=== PATIENT | male | born 1945 | race Caucasian/White ===

== ENCOUNTER 2016-11-21 21:19 | Observation (INO) ==
[2016-11-21] MEDS ORDERED: 0.9 % Sodium Chloride 1,000 ML IVC ONE (21:42)
--- NOTE | 2016-11-21 21:45 | Emergency Department Note ---
Disposition Clinical Impression: UTI (urinary tract infection) Disposition: Admitted As Inpatient Condition: Good Referrals: NO,PCP [Primary Care Provider] - Forms: ED Satisfaction Letter Time of Disposition: 23:53 SOB HPI - General Chief Complaint: ED Shortness of Breath/Dyspnea Stated Complaint: SOB Time Seen by Provider: 11/21/16 21:40 Source: patient, family Mode of arrival: ambulatory Limitations: no limitations Nursing Notes Reviewed: Yes Vital Signs Reviewed: Yes - History of Present Illness 71-year-old white male who states she has felt bad for a week. He has felt feverish and chilled. He has not documented an elevated temperature. He has felt short of breath with exertion. He has been lightheaded and dizzy when he is up walking and exerting himself. He states he has no energy and he feels generally weak. He denies any significant cough. No vomiting or diarrhea. No frequency or urgency. Pt Subjective Complaint: shortness of breath Onset (ago): week(s) Context: recent illness (1) Severity: moderate Consistency/Duration: constant Improves with: rest Worsens with: exertion Known history of: other (None) Associated symptoms: Reports: fever (Subjective) Treatment prior to arrival: none Cough present: No - Related Data Home oxygen amount: none Home Medications Medication Instructions Recorded Confirmed No Known Home Drugs 11/21/16 11/21/16 Allergies Allergy/AdvReac Type Severity Reaction Status Date / Time No Known Allergies Allergy Verified 11/21/16 21:21 All systems ED: reviewed and negative except as stated. Constitutional: Reports: fever, chills Eyes: Denies: eye discharge ENT ED: Denies: ear pain, throat pain Cardiovascular: Denies: chest pain Respiratory: Reports: dyspnea. Denies: cough, wheezes, hemoptysis, sputum production Gastrointestinal: Denies: abdominal pain, nausea, vomiting Genitourinary: Denies: urgency, dysuria, frequency Musculoskeletal: Denies: back pain, neck pain Integumentary: Denies: rash Past Medical History - Past Medical History Medical history: Reports: other Psychiatric history: Reports: no psych history - Social History Smoking Status: Never smoker Smokeless Tobacco Status: No Alcohol use: Reports: none Drug use: Reports: none Physical Exam - General Limitations: no limitations General appearance: alert, in no apparent distress - Head Head exam: atraumatic, normocephalic - Eye Eye exam: Present: PERRL, EOMI. Absent: scleral icterus, conjunctival injection - ENT ENT exam: normal oropharynx, mucous membranes moist, TM's normal bilaterally - Neck Neck exam: Present: normal inspection, full ROM, trachea midline. Absent: tenderness, lymphadenopathy - Respiratory Respiratory exam: Present: other (Decreased breath sounds in the bases bilaterally). Absent: respiratory distress, wheezes, accessory muscle use, prolonged expiratory phase - Cardiovascular Cardiovascular exam: Present: regular rate, normal rhythm, normal heart sounds - Abdominal Exam Abdominal exam: Present: soft, Non-Tender, normal bowel sounds. Absent: organomegaly, mass - Extremities Exam Extremities exam: Present: normal inspection, full ROM, normal capillary refill. Absent: pedal edema, calf tenderness - Back Exam Back exam: Absent: CVA tenderness (R), CVA tenderness (L) - Neurological Exam Neurological exam: Present: alert, oriented X3, normal gait. Absent: motor sensory deficit - Psychiatric Psychiatric exam: Present: normal affect, normal mood - Skin Skin exam: Present: warm, dry, intact, normal color Course Vital Signs Temperature 101.2 F H 11/21/16 21:22 Pulse Rate 81 11/21/16 21:22 Respiratory Rate 18 11/21/16 21:22 Blood Pressure 156/87 11/21/16 21:22 O2 Sat by Pulse Oximetry 96 11/21/16 21:22 Temperature 97.9 F 11/21/16 23:40 Pulse Rate 72 11/21/16 23:40 Respiratory Rate 24 11/21/16 23:40 Blood Pressure 128/75 11/21/16 23:40 O2 Sat by Pulse Oximetry 95 11/21/16 23:40 Oxygen Delivery Oxygen Delivery Room Air Shortness of Breath/Dyspnea - MDM Narrative Medical decision making narrative: Differential includes but is not limited to pneumonia, CHF, sepsis, UTI, influenza, bronchitis Is no evidence of pneumonia. No evidence of pulmonary embolus. He has a UTI with a significant left shift with bandemia. He has a temperature of 101. He was cultured. He was given IV Rocephin. I spoke with Dr. Asher. He will be placed in an observation bed for further evaluation. - Lab Data Lab results reviewed: Yes I reviewed the patient's lab results. Result diagrams: 11/21/16 21:49 11/21/16 21:55 Lab Results 11/21/16 11/21/16 11/21/16 Range/Units 21:49 21:49 21:49 WBC 5.3 (4.3-11.1) K/mcL RBC 4.98 (4.19-5.50) M/mcL Hgb 15.1 (12.9-16.9) g/dL Hct 43.7 (37.5-50.1) % MCV 87.8 (83.0-100.0) fL MCH 30.3 (28.0-33.3) pg MCHC 34.6 (31.6-35.5) g/dL RDW 12.6 (11.5-14.5) % Plt Count 122 L (140-400) K/mcL MPV 10.4 (9.4-12.4) fL Seg Neutrophils % 32.0 % Band Neutrophils % 8.0 H (0-4) % Lymphocytes % 54.0 % Monocytes % 6.0 % Neutrophils # 2.1 (1.6-8.9) K/mcL Lymphocytes # 2.9 (0.6-4.6) K/mcL Monocytes # 0.3 (0.0-1.3) K/mcL Smudge Cells Present A (Not Present) Toxic Granulation Present A (Not Present) Platelet Estimate Slight Decrease L (Normal) Anisocytosis 1+ A (Not Present) VBG Lactic Acid (0.5-2.2) mmol/L Sodium (136-145) mEq/L Potassium (3.5-4.5) mEq/L Chloride (98-109) mEq/L Carbon Dioxide (19-29) mEq/L BUN (8-26) mg/dL Creatinine (0.72-1.25) mg/dL Est GFR ( Amer) (> 60) Est GFR (Non-Af Amer) (> 60) BUN/Creatinine Ratio (6-26) Glucose (70-99) mg/dL Calculated Osmolality (280-300) Calcium (8.6-10.8) mg/dL Total Bilirubin (0.2-1.2) mg/dL AST (5-34) Units/L ALT (0-55) Units/L Alkaline Phosphatase (38-126) Units/L Troponin I 0.01 (0-0.03) ng/mL B-Natriuretic Peptide 30 (0-100) pg/mL Serum Total Protein (6.0-8.3) g/dL Albumin (3.5-5.0) g/dL Globulin (2.4-3.5) g/dL Albumin/Globulin Ratio (1.1-2.2) Urine Color (Yellow) Urine Clarity (Clear) Urine pH (5.0-8.0) pH Units Ur Specific [place] (1.010-1.025) Urine Protein (Neg-Trace) mg/dL Urine Glucose (UA) (Normal) mg/dL Urine Ketones (Negative) mg/dL Urine Blood (Negative) Urine Nitrite (Negative) Urine Bilirubin (Negative) Urine Urobilinogen (Normal) mg/dL Ur Leukocyte Esterase (Negative) Urine Microscopic RBC (0-3) per hpf Urine Microscopic WBC (0-3) per hpf Ur Squamous Epith Cells (None-Few) per lpf Urine Bacteria (None-Few) per hpf Urine Mucus (Few) Ur Culture Indicated? (NO) 11/21/16 11/21/16 11/21/16 Range/Units 21:49 21:55 22:30 WBC (4.3-11.1) K/mcL RBC (4.19-5.50) M/mcL Hgb (12.9-16.9) g/dL Hct (37.5-50.1) % MCV (83.0-100.0) fL MCH (28.0-33.3) pg MCHC (31.6-35.5) g/dL RDW (11.5-14.5) % Plt Count (140-400) K/mcL MPV (9.4-12.4) fL Seg Neutrophils % % Band Neutrophils % (0-4) % Lymphocytes % % Monocytes % % Neutrophils # (1.6-8.9) K/mcL Lymphocytes # (0.6-4.6) K/mcL Monocytes # (0.0-1.3) K/mcL Smudge Cells (Not Present) Toxic Granulation (Not Present) Platelet Estimate (Normal) Anisocytosis (Not Present) VBG Lactic Acid 1.4 (0.5-2.2) mmol/L Sodium 134 L (136-145) mEq/L Potassium 4.0 (3.5-4.5) mEq/L Chloride 102 (98-109) mEq/L Carbon Dioxide 21 (19-29) mEq/L BUN 13 (8-26) mg/dL Creatinine 1.21 (0.72-1.25) mg/dL Est GFR ( Amer) > 60 (> 60) Est GFR (Non-Af Amer) 59 L (> 60) BUN/Creatinine Ratio 11 (6-26) Glucose 121 H (70-99) mg/dL Calculated Osmolality 279 L (280-300) Calcium 8.3 L (8.6-10.8) mg/dL Total Bilirubin 0.6 (0.2-1.2) mg/dL AST 42 H (5-34) Units/L ALT 47 (0-55) Units/L Alkaline Phosphatase 77 (38-126) Units/L Troponin I (0-0.03) ng/mL B-Natriuretic Peptide (0-100) pg/mL Serum Total Protein 6.8 (6.0-8.3) g/dL Albumin 3.1 L (3.5-5.0) g/dL Globulin 3.7 H (2.4-3.5) g/dL Albumin/Globulin Ratio 0.8 L (1.1-2.2) Urine Color Yellow (Yellow) Urine Clarity Cloudy A (Clear) Urine pH 6.5 (5.0-8.0) pH Units Ur Specific [place] 1.015 (1.010-1.025) Urine Protein 100 H (Neg-Trace) mg/dL Urine Glucose (UA) Normal (Normal) mg/dL Urine Ketones Negative (Negative) mg/dL Urine Blood Trace-lysed H (Negative) Urine Nitrite Positive A (Negative) Urine Bilirubin Negative (Negative) Urine Urobilinogen Normal (Normal) mg/dL Ur Leukocyte Esterase Moderate H (Negative) Urine Microscopic RBC 0-3 (0-3) per hpf Urine Microscopic WBC TNTC H (0-3) per hpf Ur Squamous Epith Cells Few (None-Few) per lpf Urine Bacteria Many H (None-Few) per hpf Urine Mucus Moderate H (Few) Ur Culture Indicated? YES A (NO) - Radiology Data Radiology results reviewed: Yes I reviewed the patient's radiology results. ITS Impressions Chest X-Ray 11/21/16 21:42 IMPRESSION: No acute process. D/ / Marco Choudhary MD / Marco Choudhary MD Interpreting Provider: Marco Choudhary MD Chest CTA 11/21/16 22:29 IMPRESSION: No evidence of pulmonary embolism or acute pulmonary abnormality. D/ / Zach Mcdowell MD / Zach Mcdowell MD Interpreting Provider: Zach Mcdowell MD - EKG Data EKG attestation: Yes I reviewed and interpreted this EKG. EKG results narrative: Normal sinus rhythm, rate of 84, no acute changes. Rhythm hip shows sinus rhythm with a rate of 84, UT interval 150 ms, QRS 95 ms with no other ectopy as interpreted by me.
[2016-11-21 22:04] LABS: Hematocrit 43.7 % (37.5-50.1); Hemoglobin 15.1 g/dL (12.9-16.9); Mean Corpuscular HGB Conc 34.6 g/dL (31.6-35.5); Mean Corpuscular Hemoglobin 30.3 pg (28.0-33.3); Mean Corpuscular Volume 87.8 fL (83.0-100.0); Mean Platelet Volume 10.4 fL (9.4-12.4); Platelet Count 122 K/mcL (140-400); Red Blood Count 4.98 M/mcL (4.19-5.50); Red Cell Distribution Width 12.6 % (11.5-14.5)
[2016-11-21 22:22] LABS: Alanine Aminotransferase 47 Units/L (0-55); Albumin 3.1 g/dL (3.5-5.0); Albumin/Globulin Ratio 0.8 (1.1-2.2); Alkaline Phosphatase 77 Units/L (38-126); Aspartate Amino Transferase 42 Units/L (5-34); BUN/Creatinine Ratio 11 (6-26); Bilirubin,Total 0.6 mg/dL (0.2-1.2); Blood Urea Nitrogen 13 mg/dL (8-26); Calcium 8.3 mg/dL (8.6-10.8); Carbon Dioxide 21 mEq/L (19-29); Chloride 102 mEq/L (98-109); Globulin 3.7 g/dL (2.4-3.5); Glucose 121 mg/dL (70-99); Osmolality,Calculated 279 (280-300); Sodium 134 mEq/L (136-145); Total Protein 6.8 g/dL (6.0-8.3); eGFR For African Americans > 60 (> 60); eGFR For Non-African Americans 59 (> 60)
[2016-11-21 22:41] LABS: Bilirubin,Urine Negative (Negative); Blood,Urine Trace-lysed (Negative); Clarity,Urine Cloudy (Clear); Color,Urine Yellow (Yellow); Glucose,Urine (UA) Normal (Normal); Ketones,Urine Negative (Negative); Leukocyte Esterase,Urine Moderate (Negative); Nitrite,Urine Positive (Negative); PH,Urine 6.5 pH Units (5.0-8.0); Protein,Urine 100 mg/dL (Neg-Trace); Specific Gravity,Urine 1.015 (1.010-1.025); Urobilinogen,Urine Normal (Normal)
[2016-11-21 22:49] LABS: Lymphocytes # 2.9 K/mcL (0.6-4.6); Monocytes # 0.3 K/mcL (0.0-1.3); Neutrophils # 2.1 K/mcL (1.6-8.9); Platelet Estimate Slight Decrease (Normal); Smudge Cells Present (Not Present); Toxic Granulation Present (Not Present)
[2016-11-21 22:50] LABS: Anisocytosis 1+ (Not Present)
[2016-11-21 22:58] LABS: Bacteria,Urine Many per hpf (None-Few); Squamous Epithelial Cell,Urine Few per lpf (None-Few); WBC,Urine TNTC per hpf (0-3)
[2016-11-21 23:01] LABS: Mucus,Urine Moderate (Few); RBC,Urine 0-3 per hpf (0-3)
[2016-11-22] MEDS ORDERED: 0.9 % Sodium Chloride 1,000 ML IVC SCH (01:13)
[2016-11-22] MEDS ORDERED: Acetaminophen 325 MG TABLET PO PRN (01:13)
[2016-11-22] MEDS ORDERED: Naloxone 0.4 MG/ML INJ IVP PRN (01:13)
[2016-11-22] MEDS ORDERED: *HR* Enoxaparin 40 MG/0.4 ML SYRINGE SQ SCH (06:00)
[2016-11-22 07:47] VITALS: BP 124/73
--- NOTE | 2016-11-22 09:51 | Internal Med History&Physical ---
Date of Encounter: 11/22/16 Time of Encounter: 09:20 Assessment and Plan (1) UTI (urinary tract infection) Current visit: Yes Status: Acute He has been started empirically on Rocephin. Qualifiers: Urinary tract infection type: site unspecified Hematuria presence: without hematuria Qualified Code(s): N39.0 - Urinary tract infection, site not specified (2) Azotemia Current visit: Yes Status: Acute Duration unknown. He denies any prescription or OTC medications. I told him an infection can occasionally cause impairment in renal function. He will follow with a PCP who can further monitor this. (3) Thrombocytopenia Current visit: Yes Status: Acute Duration unknown. Follow-up labs can be done by a PCP. Internal Medicine - H&P: HPI Chief complaint: Fever and dyspnea Admitted From: Home Plans for Post Hospital Care: Home History of present illness: Mr. Guerrero is a 71 year old male who came to the hospital stating he had one- week history of dyspnea on exertion and weakness. He denies cough nausea vomiting diarrhea or pain. He was evaluated in emergency room and found to have evidence of UTI. He was admitted to [facility] floor for ongoing care needs. He states he feels improved at the present time. His respiratory history is significant for being a lifelong nonsmoker and having no known chronic lung disease. He denies previous similar episodes of illness. There are no family members similarly affected. His history is pertinent for BPH status post TUR approximately 2014. He denies other kidney bladder or prostate disorders. Past Med Surg Social Fam HX - Past Medical History Medical history: other Psychiatric history: no psych history - Social History Smoking Status: Never smoker Smokeless Tobacco Status: No Alcohol use: none Drug use: none Internal Medicine - H&P: Meds No Known Home Drugs 11/21/16 [History] Allergies No Known Allergies Allergy (Verified 11/21/16 21:21) All Systems PM: A 10-system review of systems was performed and is negative for pertinent findings except as documented above in the HPI. Review of systems: Gen.: He states his weight has been stable the past few months Cardiovascular: Denies hypertension AK heart failure angina DVT or pulmonary embolus Respiratory: Per history of present illness GI: Denies disorders of his liver gallbladder or exocrine pancreas : As per history of present illness Neurologic: He denies large distribution strokes or seizures. Endocrine: He denies diabetes thyroid disease or hyperlipidemia Hematology/oncology: Denies blood disorders cancers or anemia Psychiatric: He denies anxiety depression or other mental health issues Musculoskeletal: He has DJD but denies other bone joint or muscle disorders. He had a fall several days ago resulting in pain in his left shoulder. He states 2-3 days ago he felt a pop and the pain has gradually lessened. There was no shoulder discoloration after the fall. - Constitutional Vitals: Temp Pulse Resp BP Pulse Ox 98.5 F 66 24 124/73 97 11/22/16 07:46 11/22/16 07:46 11/22/16 07:46 11/22/16 07:46 11/22/16 07:46 Exam: Gen.: He is a well-developed well-nourished male sitting in a chair who appears in no acute distress HEENT: Head is atraumatic and normocephalic. Eyes: EOMI. There is no scleral icterus. Mouth: Mucosa is moist. Neck: Supple and nontender. There is no thyromegaly or adenopathy noted. Heart: Regular without murmurs gallops or ectopics Lungs: No wheezes or crackles are heard. Abdomen: Soft and nontender. No masses or guarding noted. Exam is limited because he is in seated position. Extremities: There is no cyanosis edema or clubbing noted. Dorsalis pedis and posterior tibial pulses are trace palpable bilaterally. He has pain on passive and active range of motion of his left shoulder. There is no significant effusion of the shoulder present. Neurologic: Mental status: He is talkative and a good historian. Cranial nerves : Smile is symmetric. Forehead wrinkles bilaterally. Tongue protrudes midline. EOMI. Motor: There is no pronator drift. Cerebellar: Finger to nose is intact bilaterally. Skin: Warm and dry Internal Med - H&P Results - Labs CBC & Chem 7: 11/21/16 21:49 11/21/16 21:55
--- NOTE | 2016-11-22 10:10 | Discharge Summary ---
Date of Encounter: 11/22/16 Time of Encounter: 09:20 - Discharge Diagnosis (1) UTI (urinary tract infection) Priority: Primary Status: Acute Qualifiers: Urinary tract infection type: site unspecified Hematuria presence: without hematuria Qualified Code(s): N39.0 - Urinary tract infection, site not specified (2) Azotemia Priority: Secondary Status: Acute (3) Thrombocytopenia Priority: Secondary Status: Acute (4) Left shoulder pain Priority: Secondary Status: Acute Qualifiers: Chronicity: acute Qualified Code(s): M25.512 - Pain in left shoulder - Discharge Medications Prescriptions: Cefuroxime PO [Ceftin] 500 mg PO Q12HR #10 tablet Lactobacillus [Culturelle] 1 each PO BID #10 cap.sprink Home Medications: Cefuroxime PO [Ceftin] 500 mg PO Q12HR #10 tablet 11/22/16 [Rx] Lactobacillus [Culturelle] 1 each PO BID #10 cap.sprink 11/22/16 [Rx] Allergies/Adverse Reactions: Allergies No Known Allergies Allergy (Verified 11/21/16 21:21) Date of admission: 11/22/16 00:56 Primary care physician: PCP NO - Patient Status Disposition: Home, Self-Care Condition: Good Overall status at discharge: patient is progressing back to baseline - Discharge Instructions Follow Up With: NO,PCP [Primary Care Provider] - 1 week - Diet and Activity Activity: resume usual activities as tolerated Diet: advance to your usual diet Hospital course: Mr. Guerrero is a 71 year old male who came to the hospital stating he had one- week history of dyspnea on exertion and weakness. He denies cough nausea vomiting diarrhea or pain. He was evaluated in emergency room and found to have evidence of UTI. He was admitted to [facility] for ongoing care needs. Initial orders were written by the emergency room physician. I saw him on November 22 and performed a history physical and discharge. He was given Rocephin in the emergency room for UTI. He will continue with oral Ceftin and probiotic for 5 days at discharge. I told him he might have a superimposed additional viral infection contributing to his dyspnea but no further workup or intervention needed at this time. The duration of his azotemia and thrombocytopenia was not known. His PCP can further monitor and evaluate as needed. He stated his left shoulder pain was gradually improving. I felt was reasonable to observe without further workup at this time. His PCP can order further studies as necessary. He will be discharged home to follow with an [facility] PCP in the [place] area within 1 week. - Time Spent with Patient Total time spent providing and/or coordinating discharge services: - Constitutional Vitals: Temp Pulse Resp BP Pulse Ox 98.5 F 66 24 124/73 97 11/22/16 07:46 11/22/16 07:46 11/22/16 07:46 11/22/16 07:46 11/22/16 07:46
--- NOTE | 2016-11-23 09:52 | Electrocardiograph Report ---
[address] [address] Test Date: 2016-11-21 Pat Name: Kevin Guerrero Department: [id number] Room: [facility] Gender: M [place] Cook: Geraldine : 1945 Requested By: Polo Chavez Order Number: [id number] Reading MD: Hari Goodwin MD Measurements Intervals [place] Rate: 84 P: 54 AK: 150 QRS: 89 QRSD: 95 T: 24 QT: 338 QTc: 379 Interpretive Statements SINUS RHYTHM Electronically Signed On 11-23-2016 9:50:45 EDT by Hari Goodwin MD
== END 2016-11-22 11:25 | disposition home or self-care (01) ==
LOC: INPPIK 21:19 → EMEROOPIK 21:19 → INPPIK 11-22 01:21
PROVIDERS: ADMIT Internal Medicine; ATTEND Internal Medicine

== ENCOUNTER 2016-11-26 10:15 | Observation (INO) ==
--- NOTE | 2016-11-26 10:18 | Emergency Department Note ---
Disposition Clinical Impression: Weakness, Failure of outpatient treatment UTI (urinary tract infection) Qualifiers: Urinary tract infection type: acute cystitis Hematuria presence: without hematuria Qualified Code(s): N30.00 - Acute cystitis without hematuria Disposition: Admitted As Inpatient Condition: Fair Referrals: Ubaldo Gibbs MD [Primary Care Provider] - Forms: ED Satisfaction Letter Weakness HPI - General Chief complaint: ED Weakness Stated complaint: Weakness Time Seen by Provider: 11/26/16 10:27 Source: patient Mode of arrival: private vehicle Limitations: no limitations Nursing Notes Reviewed: Yes Vital Signs Reviewed: Yes - History of Present Illness HPI Narrative: Patient was recently hospitalized from November 21 to November 22 for UTI and thrombocytopenia. He had presented with dyspnea and weakness. He relates after discharge he has continued with generalized weakness the point where he now states that he "just has no strength to walk". He denies that he has had any presyncopal-type troubles. He denies any pain including any chest pain or palpitation. He is not complaining of increased shortness of breath or dyspnea on exertion. He denies abdominal pain, nausea, vomiting or diarrhea. He states the laxative and has had normal bowel movement. He denies any bloody or black stool. States he recently was diagnosed as urinary tract infection but has no urinary complaints. He states he is eating and drinking well and urinating normally for his fluid intake. He denies any fevers or chills but has had spells of diaphoresis. He states he was "dripping on the floor" just getting dressed this morning. Denies any localized numbness, tingling or weakness. He denies headache, confusion or visual changes. He states he did have 3 ticks taken off him but he was evaluated for tick born disease and was negative. Pt Subjective Complaint: generalized weakness/fatigue Onset (ago): day(s) Duration: gradually worsening Location: generalized Migration: none Pain Severity: none Improves with: none Worsens with: movement, exertion Associated symptoms: Reports: diaphoresis. Denies: chest pain, confusion, dark stools, dysuria, easy bruising, fever/chills, headaches, loss of appetite, nausea/vomiting, myalgias, rash, shortness of breath, syncope - Related Data Previous Rx's Medication Instructions Recorded Cefuroxime PO [Ceftin] 500 mg PO Q12HR #10 tablet 11/22/16 Lactobacillus [Culturelle] 1 each PO BID #10 capverito 11/22/16 Allergies Allergy/AdvReac Type Severity Reaction Status Date / Time No Known Allergies Allergy Verified 11/21/16 21:21 All systems ED: reviewed and negative except as stated. Past Medical History - Past Medical History Attestation: Yes The following information was validated with the patient. Source: patient, old records reviewed, nursing notes reviewed Medical history: Reports: other (prostatic hypertrophy) Surgical history: Reports: prostatectomy (TURP), other (Exploratory laparotomy for "twisted bowel" without resection) Psychiatric history: Reports: no psych history - Social History Smoking Status: Never smoker Smokeless Tobacco Status: No Alcohol use: Reports: none Drug use: Reports: none Physical Exam - General Limitations: no limitations General appearance: alert, in no apparent distress - Head Head exam: atraumatic, normocephalic, normal inspection - Eye Eye exam: Present: normal appearance, PERRL, EOMI. Absent: scleral icterus, conjunctival injection - ENT ENT exam: normal exam, normal oropharynx, mucous membranes moist - Neck Neck exam: Present: normal inspection, full ROM, trachea midline. Absent: lymphadenopathy - Chest Chest inspection: Present: normal inspection, symmetric chest wall rise - Respiratory Respiratory exam: Present: normal lung sounds bilaterally. Absent: respiratory distress, wheezes, prolonged expiratory phase - Cardiovascular Cardiovascular exam: Present: regular rate, normal rhythm, normal heart sounds. Absent: tachycardia - Abdominal Exam Abdominal exam: Present: soft, Non-Tender, normal bowel sounds. Absent: tenderness, distention, guarding, rebound, rigidity - Extremities Exam Extremities exam: Present: normal inspection, full ROM, normal capillary refill. Absent: tenderness, pedal edema - Expanded Lower Extremity Exam Neurovascular/Tendon exam: Present: normal capillary refill. Absent: motor deficit, sensory deficit, tendon deficit Gait: observed and normal - Back Exam Back exam: Present: normal inspection, full ROM. Absent: tenderness, CVA tenderness (R), CVA tenderness (L), vertebral tenderness - Neurological Exam Neurological exam: Present: alert, oriented X3, CN II-XII intact, normal gait, reflexes normal. Absent: motor sensory deficit - Psychiatric Psychiatric exam: Present: normal affect, normal mood - Skin Skin exam: Present: warm, dry, intact, normal color. Absent: rash, diaphoresis , pallor Course Course Narrative: 1220: Patient has been unable to urinate. Other lab on the EKG and x-ray evaluation is unremarkable. I have reviewed his old record and he was negative for influenza, had negative blood cultures 2 and a urine culture sent on November 21. He was discharged on Ceftin and the urine grew staph epi there is resistant to supple sports and penicillin. It was sensitive to Bactrim, nitrofurantoin and vancomycin. I written for dose of IV vancomycin and he will continue that medication for a day with hydration to see if his energy improves where he can then continue on either Bactrim or nitrofurantoin at home. A page has been placed to Dr. Asher for this purpose. 1300: Dr. Asher has accepted this patient and given verbal orders for his inpatient treatment. Vital Signs Temperature 98.2 F 11/26/16 10:17 Pulse Rate 94 11/26/16 10:17 Respiratory Rate 18 11/26/16 10:17 Blood Pressure 126/69 11/26/16 10:17 O2 Sat by Pulse Oximetry 97 11/26/16 10:17 Temperature 98.2 F 11/26/16 10:18 Pulse Rate 72 11/26/16 13:22 Respiratory Rate 18 11/26/16 13:22 Blood Pressure 142/80 11/26/16 13:22 O2 Sat by Pulse Oximetry 95 11/26/16 13:22 Oxygen Delivery Oxygen Delivery Room Air Weakness - Differential Diagnosis Differential Diagnosis: Likely: anemia, sepsis/infection, dehydration, medication effect, metabolic, thyroid/endocrine disorder - Medical Records Medical records reviewed: Yes I reviewed the patient's medical records. - Lab Data Lab results reviewed: Yes I reviewed the patient's lab results. Result diagrams: 11/26/16 10:40 11/26/16 10:40 Lab Results 11/26/16 11/26/16 11/26/16 Range/Units 10:40 10:40 10:40 WBC 7.5 (4.3-11.1) K/mcL RBC 5.01 (4.19-5.50) M/mcL Hgb 15.3 (12.9-16.9) g/dL Hct 44.0 (37.5-50.1) % MCV 87.8 (83.0-100.0) fL MCH 30.5 (28.0-33.3) pg MCHC 34.8 (31.6-35.5) g/dL RDW 13.2 (11.5-14.5) % Plt Count 116 L (140-400) K/mcL MPV 11.4 (9.4-12.4) fL Seg Neutrophils % 40.0 % Band Neutrophils % 10.0 H (0-4) % Lymphocytes % 46.0 % Monocytes % 4.0 % Neutrophils # 3.8 (1.6-8.9) K/mcL Lymphocytes # 3.5 (0.6-4.6) K/mcL Monocytes # 0.3 (0.0-1.3) K/mcL Reactive Lymphocytes Present A (Not Present) Platelet Estimate Decreased L (Normal) Sodium 135 L (136-145) mEq/L Potassium 4.0 (3.5-4.5) mEq/L Chloride 102 (98-109) mEq/L Carbon Dioxide 22 (19-29) mEq/L BUN 15 (8-26) mg/dL Creatinine 1.07 (0.72-1.25) mg/dL Est GFR ( Amer) > 60 (> 60) Est GFR (Non-Af Amer) > 60 (> 60) BUN/Creatinine Ratio 14 (6-26) Glucose 102 H (70-99) mg/dL POC Glucose (58-89) Calculated Osmolality 281 (280-300) Calcium 8.5 L (8.6-10.8) mg/dL Total Bilirubin 0.5 (0.2-1.2) mg/dL AST 99 H (5-34) Units/L ALT 85 H (0-55) Units/L Alkaline Phosphatase 83 (38-126) Units/L Troponin I 0.00 (0-0.03) ng/mL Serum Total Protein 6.9 (6.0-8.3) g/dL Albumin 3.1 L (3.5-5.0) g/dL Globulin 3.8 H (2.4-3.5) g/dL Albumin/Globulin Ratio 0.8 L (1.1-2.2) TSH (0.350-4.840) mcIU/mL 11/26/16 11/26/16 Range/Units 10:40 10:50 WBC (4.3-11.1) K/mcL RBC (4.19-5.50) M/mcL Hgb (12.9-16.9) g/dL Hct (37.5-50.1) % MCV (83.0-100.0) fL MCH (28.0-33.3) pg MCHC (31.6-35.5) g/dL RDW (11.5-14.5) % Plt Count (140-400) K/mcL MPV (9.4-12.4) fL Seg Neutrophils % % Band Neutrophils % (0-4) % Lymphocytes % % Monocytes % % Neutrophils # (1.6-8.9) K/mcL Lymphocytes # (0.6-4.6) K/mcL Monocytes # (0.0-1.3) K/mcL Reactive Lymphocytes (Not Present) Platelet Estimate (Normal) Sodium (136-145) mEq/L Potassium (3.5-4.5) mEq/L Chloride (98-109) mEq/L Carbon Dioxide (19-29) mEq/L BUN (8-26) mg/dL Creatinine (0.72-1.25) mg/dL Est GFR ( Amer) (> 60) Est GFR (Non-Af Amer) (> 60) BUN/Creatinine Ratio (6-26) Glucose (70-99) mg/dL POC Glucose 94 H (58-89) Calculated Osmolality (280-300) Calcium (8.6-10.8) mg/dL Total Bilirubin (0.2-1.2) mg/dL AST (5-34) Units/L ALT (0-55) Units/L Alkaline Phosphatase (38-126) Units/L Troponin I (0-0.03) ng/mL Serum Total Protein (6.0-8.3) g/dL Albumin (3.5-5.0) g/dL Globulin (2.4-3.5) g/dL Albumin/Globulin Ratio (1.1-2.2) TSH 2.620 (0.350-4.840) mcIU/mL - Radiology Data Radiology results reviewed: Yes I reviewed the patient's radiology results. Single view chest x-ray is performed. This does not demonstrate evidence for infiltrate, effusion, pneumothorax, foreign body or heart failure. The cardiac silhouette is normal. I do not see abnormality to the osseous structures of the chest. This is on my interpretation. Impressions Chest X-Ray 11/26/16 10:27 IMPRESSION: Low lung volumes, otherwise no acute cardiopulmonary process. D/ / Chester Guerra MD / Chester Guerra MD Interpreting Provider: Chester Guerra MD - EKG Data EKG attestation: Yes I reviewed and interpreted this EKG. EKG shows normal: sinus rhythm, intervals, QRS complexes, ST-T waves Rate: normal (85) [place]/QRS: right axis deviation Q waves: II, III, aVF Interpretation: no acute changes
[2016-11-26 10:55] LABS: Hemoglobin 15.3 g/dL (12.9-16.9); Mean Corpuscular HGB Conc 34.8 g/dL (31.6-35.5); Mean Corpuscular Hemoglobin 30.5 pg (28.0-33.3); Mean Corpuscular Volume 87.8 fL (83.0-100.0); Mean Platelet Volume 11.4 fL (9.4-12.4); Platelet Count 116 K/mcL (140-400); Red Blood Count 5.01 M/mcL (4.19-5.50); Red Cell Distribution Width 13.2 % (11.5-14.5)
[2016-11-26 11:09] LABS: Alanine Aminotransferase 85 Units/L (0-55); Albumin 3.1 g/dL (3.5-5.0); Albumin/Globulin Ratio 0.8 (1.1-2.2); Alkaline Phosphatase 83 Units/L (38-126); Aspartate Amino Transferase 99 Units/L (5-34); BUN/Creatinine Ratio 14 (6-26); Bilirubin,Total 0.5 mg/dL (0.2-1.2); Blood Urea Nitrogen 15 mg/dL (8-26); Calcium 8.5 mg/dL (8.6-10.8); Carbon Dioxide 22 mEq/L (19-29); Chloride 102 mEq/L (98-109); Globulin 3.8 g/dL (2.4-3.5); Glucose 102 mg/dL (70-99); Osmolality,Calculated 281 (280-300); Sodium 135 mEq/L (136-145); Total Protein 6.9 g/dL (6.0-8.3); eGFR For African Americans > 60 (> 60); eGFR For Non-African Americans > 60 (> 60)
[2016-11-26 11:43] LABS: Lymphocytes # 3.5 K/mcL (0.6-4.6); Monocytes # 0.3 K/mcL (0.0-1.3); Neutrophils # 3.8 K/mcL (1.6-8.9)
[2016-11-26 11:45] LABS: Reactive Lymphocytes Present (Not Present)
[2016-11-26 11:46] LABS: Platelet Estimate Decreased (Normal)
[2016-11-26] MEDS ORDERED: Aminoglycoside Consult 1 EACH MC ONE (12:00)
[2016-11-26] MEDS ORDERED: Vancomycin 1,250 MG in D5% in Water 250 ML IVPB SCH (12:25)
[2016-11-26] MEDS ORDERED: Vancomycin 1,500 MG in D5% in Water 250 ML IVPB SCH (12:45)
[2016-11-26] MEDS ORDERED: Acetaminophen 325 MG TABLET PO ONE (13:25)
[2016-11-26] MEDS ORDERED: Acetaminophen 325 MG TABLET PO PRN (14:21)
[2016-11-26] MEDS ORDERED: Ondansetron 4 MG/2 ML VIAL IVP PRN (14:21)
[2016-11-26] MEDS ORDERED: Naloxone 0.4 MG/ML INJ IVP PRN (14:21)
[2016-11-26] MEDS ORDERED: MOM Conc 10 ML UD.LIQ PO PRN (14:21)
[2016-11-26] MEDS ORDERED: 0.9 % Sodium Chloride 1,000 ML IVC SCH (14:21)
--- NOTE | 2016-11-26 15:11 | Electrocardiograph Report ---
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
--- NOTE | 2016-11-26 17:32 | Internal Med History&Physical ---
Date of Encounter: 11/26/16 Time of Encounter: 16:55 Assessment and Plan (1) Weakness Current visit: Yes Status: Acute Suspect viral infection with bandemia and elevated transaminase levels. We will recheck labs in a.m. (2) Elevated transaminase level Current visit: Yes Status: Acute LFTs have approximately doubled since 11/21/2016 labs. We will recheck in a.m. (3) Thrombocytopenia Current visit: No Status: Acute Duration unknown. Minimally changed from 11/21/2016 labs. Internal Medicine - H&P: HPI Chief complaint: Weakness Admitted From: Home Plans for Post Hospital Care: Home History of present illness: Mr. Guerrero is a 71 year old male who was directed to emergency room from the PCP office for complaints of weakness. He had been discharged from [facility] 2016 after overnight stay with diagnoses of UTI. Urine culture report returned on 11/24/2016 showing staph epidermidis. Ceftin and lactobacillus were prescribed at discharge. He states upon arriving home November 22 he had progressive weakness without cough dyspnea nausea vomiting diarrhea myalgias arthralgias or other infectious symptoms. He states he simply was weak and could hardly ambulate. He did not fall on ambulating this morning as he was preparing to go to his PCP office appointment. He was evaluated in emergency room [facility]. Past Med Surg Social Fam HX - Past Medical History Medical history: other Psychiatric history: no psych history - Past Surgical History Surgical History: prostatectomy, other - Social History Smoking Status: Never smoker Smokeless Tobacco Status: No Alcohol use: none Drug use: none Internal Medicine - H&P: Meds Cefuroxime PO [Ceftin] 500 mg PO Q12HR #10 tablet 11/22/16 [Rx] Lactobacillus [Culturelle] 1 each PO BID #10 cap.sprink 11/22/16 [Rx] Allergies No Known Allergies Allergy (Verified 11/21/16 21:21) All Systems PM: A 10-system review of systems was performed and is negative for pertinent findings except as documented above in the HPI. Review of systems: Review of systems from his 11/22/2016 history and physical were reviewed and revised as below. Gen.: He states his weight has been stable the past few months Cardiovascular: He denies hypertension [place] heart failure angina DVT or pulmonary embolus Respiratory: He reports being a lifelong nonsmoker and having no chronic lung disease. He states he is no longer dyspneic on exertion as he was on the November 22 admission. GI: Denies disorders of his liver gallbladder or exocrine pancreas : He has BPH and is status post TUR approximately 2014. There are no other kidney bladder prostate disorders. Neurologic: He denies large distribution strokes or seizures. Endocrine: He denies diabetes thyroid disease or hyperlipidemia Hematology/oncology: Denies blood disorders cancers or anemia Psychiatric: He denies anxiety depression or other mental health issues Musculoskeletal: He has DJD but denies other bone joint or muscle disorders. He had a fall approximately 3 weeks ago resulting in pain in his left shoulder. He states the pain continues to gradually improve. - Constitutional Vitals: Temp Pulse Resp BP Pulse Ox 98.5 F 75 18 113/63 96 11/26/16 15:14 11/26/16 15:14 11/26/16 15:14 11/26/16 15:14 11/26/16 15:14 Exam: Gen.: He is a well-developed well-nourished male who appears in no severe distress at present HEENT: Head is atraumatic and normocephalic. Eyes: EOMI. There is no scleral icterus. Mouth: Mucosa is moist. Neck: Supple and nontender. There is no thyromegaly or adenopathy noted. Heart: Regular without murmurs gallops or ectopics. Lungs: No wheezes or crackles are heard. Abdomen: Soft and nontender. No masses or guarding noted. Extremities: He has pain on movement of the left shoulder. The right arm moves well. There is no cyanosis edema or clubbing noted. Dorsalis pedis and posterior tibial pulses are trace to 1+ palpable bilaterally. His feet are warm to touch. Neurologic: Mental status: He is talkative and a good historian. Cranial nerves : Smile is symmetric. Forehead wrinkles bilaterally. Tongue protrudes midline. EOMI. Motor: There is no pronator drift. Cerebellar: Finger to nose is intact bilaterally. Skin: Warm and dry Internal Med - H&P Results - Labs CBC & Chem 7: 11/26/16 10:40 11/26/16 10:40
[2016-11-26] MEDS: Doxycycline 100 MG CAPSULE PO SCH (20:01)
[2016-11-26] MEDS: Lactobacillus 1 EACH CAP.SPRINK PO SCH (20:01)
[2016-11-27] MEDS ORDERED: Vancomycin 1,500 MG in D5% in Water 250 ML IVPB SCH (00:45)
[2016-11-27 05:48] LABS: Basophils % 0.4 %; Eosinophils % 0.4 %; Hematocrit 40.6 % (37.5-50.1); Hemoglobin 13.9 g/dL (12.9-16.9); Immature Granulocytes % 0.3 % (0-4); Lymphocytes # 4.2 K/mcL (0.6-4.6); Lymphocytes % 60.9 %; Mean Corpuscular HGB Conc 34.2 g/dL (31.6-35.5); Mean Corpuscular Hemoglobin 30.3 pg (28.0-33.3); Mean Corpuscular Volume 88.6 fL (83.0-100.0); Mean Platelet Volume 11.6 fL (9.4-12.4); Monocytes # 0.5 K/mcL (0.0-1.3); Monocytes % 7.2 %; Neutrophils # 2.1 K/mcL (1.6-8.9); Platelet Count 116 K/mcL (140-400); Red Blood Count 4.58 M/mcL (4.19-5.50); Red Cell Distribution Width 13.3 % (11.5-14.5); Segmented Neutrophils % 30.8 %
[2016-11-27 06:06] LABS: Alanine Aminotransferase 65 Units/L (0-55); Albumin 2.8 g/dL (3.5-5.0); Albumin/Globulin Ratio 0.8 (1.1-2.2); Alkaline Phosphatase 74 Units/L (38-126); Aspartate Amino Transferase 71 Units/L (5-34); BUN/Creatinine Ratio 15 (6-26); Bilirubin,Total 0.5 mg/dL (0.2-1.2); Blood Urea Nitrogen 13 mg/dL (8-26); Calcium 8.3 mg/dL (8.6-10.8); Carbon Dioxide 24 mEq/L (19-29); Chloride 103 mEq/L (98-109); Globulin 3.3 g/dL (2.4-3.5); Glucose 91 mg/dL (70-99); Osmolality,Calculated 284 (280-300); Potassium 3.7 mEq/L (3.5-4.5); Sodium 137 mEq/L (136-145); Total Protein 6.1 g/dL (6.0-8.3); eGFR For African Americans > 60 (> 60); eGFR For Non-African Americans > 60 (> 60)
[2016-11-27 06:55] VITALS: BP 102/61
[2016-11-27] MEDS: Lactobacillus 1 EACH CAP.SPRINK PO SCH (09:00)
[2016-11-27] MEDS: Doxycycline 100 MG CAPSULE PO SCH (09:00)
--- NOTE | 2016-11-27 09:26 | Discharge Summary ---
Date of Encounter: 11/27/16 Time of Encounter: 09:15 - Discharge Diagnosis (1) Weakness Priority: Primary Status: Acute (2) Elevated transaminase level Priority: Secondary Status: Acute (3) Thrombocytopenia Priority: Secondary Status: Acute - Discharge Medications Prescriptions: Doxycycline 100 mg PO BID #10 capsule Lactobacillus [Culturelle] 1 each PO BID #10 cap.sprink Home Medications: Cefuroxime PO [Ceftin] 500 mg PO Q12HR #10 tablet 11/22/16 [Rx] Doxycycline 100 mg PO BID #10 capsule 11/27/16 [Rx] Lactobacillus [Culturelle] 1 each PO BID #10 cap.sprink 11/27/16 [Rx] Allergies/Adverse Reactions: Allergies No Known Allergies Allergy (Verified 11/21/16 21:21) Date of admission: 11/26/16 14:02 Primary care physician: Ubaldo Gibbs MD - Patient Status Disposition: Home, Self-Care Condition: Fair Functional capacity at discharge: independent ambulation Overall status at discharge: patient is progressing back to baseline - Discharge Instructions Follow Up With: Ubaldo Gibbs MD [Primary Care Provider] - 1 week - Diet and Activity Activity: resume usual activities as tolerated Diet: advance to your usual diet Hospital course: Mr. Guerrero is a 71 year old male who was directed to emergency room from the PCP office for complaints of weakness. He had been discharged from [facility] 2016 after overnight stay with diagnoses of UTI. Urine culture report returned on 11/24/2016 showing staph epidermidis. Ceftin and lactobacillus were prescribed at discharge. He states upon arriving home November 22 he had progressive weakness without cough dyspnea nausea vomiting diarrhea myalgias arthralgias or other infectious symptoms. He states he simply was weak and could hardly ambulate. He did not fall on ambulating this morning as he was preparing to go to his PCP office appointment. He was evaluated in emergency room and admitted to [facility] floor for ongoing care needs. Initial orders were written by the emergency room physician. I saw him on November 26 and performed a history and physical. He was started in the emergency room on vancomycin for staph epidermidis found on urine culture 11/22/2016. I added doxycycline. His temperature remained normal during hospital stay. Follow-up lab work on November 27 showed resolution of bandemia seen on CBC differential. His creatinine improved to 0.89. LFTs improved with AST 71 and ALT 65 on the day of discharge. When I saw him on November 27 he stated he felt improved and was able to ambulate in the room without difficulty. He felt stable for discharge home which I felt was reasonable. He will continue with doxycycline for 5 days after discharge. He will follow with his PCP within one week. - Time Spent with Patient Total time spent providing and/or coordinating discharge services: - Constitutional Vitals: Temp Pulse Resp BP Pulse Ox 98.9 F 65 18 102/61 94 11/27/16 06:51 11/27/16 06:51 11/27/16 06:51 11/27/16 06:51 11/27/16 06:51
== END 2016-11-27 12:19 | disposition home or self-care (01) ==
LOC: INPPIK 10:15 → EMEROOPIK 10:15 → INPPIK 14:27
PROVIDERS: ADMIT Internal Medicine; ATTEND Internal Medicine